=== PATIENT | male | born 1950 | race Caucasian/White ===

== ENCOUNTER 2018-04-06 13:33 | Outpatient (CLI) | payer MEDICARE ==
--- NOTE | 2018-04-06 15:28 | RAD ---
LUMBAR SPINE 3 VIEWS: HISTORY: A 69-year-old male with a history of acute pain due to trauma. FINDINGS: Extensive disk-osteophytosis and facet arthrosis. No evidence for acute fracture or dislocation or s ignificant malalignment. IMPRESSION: Extensive lumbar spondylosis. POS: SHADI
--- NOTE | 2018-04-06 15:30 | RAD ---
SACRUM AND COCCYX THREE VIEWS: History: Low back pain with trauma. FINDINGS: The bones appear demineralized. SI joints are symmetric. I do not appreciate any signs of acute injur y to the sacrum or coccyx. IMPRESSION: No acute findings. POS: SHADI
== END 2018-04-06 13:34 | disposition home or self-care (01) ==
LOC: RAD 13:33
PROVIDERS: ATTEND Nurse Practitioner Family
DX: G89.11 Acute pain due to trauma (principal); M45.5 Ankylosing spondylitis of thoracolumbar region; M47.816 Spondylosis without myelopathy or radiculopathy, lumbar region; Z51.81 Encounter for therapeutic drug level monitoring; Z79.891 Long term (current) use of opiate analgesic
CPT/HCPCS: 72100; 72220; 80307; G0483

== ENCOUNTER 2019-02-26 13:23 | Emergency (ER) | payer MEDICARE ==
--- NOTE | 2019-02-26 14:20 | RAD ---
Right foot:3 views INDICATION:Injury with pain COMPARISON:None FINDINGS: Small enthesophyte from the plantar and posterior calcaneus. Mild degenerative change in the intertar rodríguez joints and tarsometatarsal joints. Metatarsals appear intact. Phalanges appear intact. Mild narrowing and DJD at the first MTP joint. Soft tissues unremarkable. IMPRESSION: No acute finding
== END 2019-02-26 14:35 | disposition home or self-care (01) ==
LOC: SCSER 13:23
DX: S90.31XA Contusion of right foot, initial encounter (principal); E11.9 Type 2 diabetes mellitus without complications; F41.9 Anxiety disorder, unspecified; F17.210 Nicotine dependence, cigarettes, uncomplicated; Z79.899 Other long term (current) drug therapy; V43.52XA Car driver injured in collision with other type car in traffic accident, initial encounter